=== PATIENT | female | born 1955 | race Caucasian/White ===

== ENCOUNTER 2017-03-20 21:56 | Inpatient (IN) | payer MEDICAID ==
[~2017-03-20] VITALS: Ht 167.6 cm; Wt 99.8 kg
[~2017-03-20 21:56] MED LIST: ATI2I IV; DIGO-119 PO; DOCU-299 PO; LACT10SO11 PO; LANTUS SUBQ; SLIDE SUBQ
[2017-03-20 22:18] VITALS: BP 160/102
--- NOTE | 2017-03-20 22:48 | NUR ---
PT TAKEN TO BED 7
--- NOTE | 2017-03-20 22:50 | NUR ---
PATIENT IS A 62 Y/O FEMALE WHO PRESENTS TO THE ED C/O OF DIZZINESS. PT STATES, "I RAN OUT OF MY CIRRHOSIS MEDICATION AND I FELT DIZZY." PT HAS A H/O DM, CIRRHOSIS, HEPATITIS C. PT DENIES PAIN. PT REPORTS MILB SOB, NOTED CLEAR LUNG SOUNDS BILATERAL. NOTED 99% O2 RA. NOTED JAUNDICE AT BILATERAL EYES. PT DENIES PAIN, N/V/D. PT AAOX4, BUT PATIENT WILL DOZE OFF EVER FEW SECONDS, RR EVEN/UNLABORED. PT REPOSITIONED FOR COMFORT, BED IN LOWEST POSITION. ER MD DR. KATHLEEN NOTIFIED. WILL CONTINUE TO MONITOR.
--- NOTE | 2017-03-20 22:57 | NUR ---
Dr. Ribeiro evaluating patient at bedside.
[2017-03-20 23:33] LABS: HEMOGLOBIN 13.1 g/dL (12.0-16.0); MEAN CORPUSCULAR HEMOGLOBIN 32 pg (27-31); MEAN CORPUSCULAR HGB CONC 34 g/dL (33-37); MEAN CORPUSCULAR VOLUME 94 fL (80-94); PLATELET COUNT (AUTO) 105 K/uL (140-450); RED BLOOD CELL COUNT(AUTO) 4.06 MIL/uL (4.20-5.40); RED CELL DISTRIBUTION WIDTH 12.9 % (11.6-13.7); WHITE BLOOD COUNT (AUTO) 6.6 K/uL (4.8-10.8)
[2017-03-20 23:42] LABS: ANION GAP 8.9 (8-16); CARBON DIOXIDE 27.9 mmol/L (21-32); CREATININE 1.2 mg/dL (0.6-1.3); POTASSIUM 3.8 mmol/L (3.5-5.1)
[2017-03-20 23:44] LABS: EOSINOPHILS % (MANUAL) 2 % (0-4); LYMPHOCYTES % (MANUAL) 14 % (20-46); MONOCYTES % (MANUAL) 8 % (5-12)
[2017-03-20 23:48] LABS: ALBUMIN 3.3 g/dL (3.4-5.0); TOTAL BILIRUBIN 0.9 mg/dL (0.0-1.0)
[2017-03-21 00:18] LABS: APPEARANCE,URINE HAZY (CLEAR); BILIRUBIN,URINE NEGATIVE (NEGATIVE); BLOOD, URINE NEGATIVE (NEGATIVE); COLOR,URINE YELLOW (YELLOW); LEUKOCYTE ESTERASE ,URINE 1+ (NEGATIVE); NITRITE, URINE NEGATIVE (NEGATIVE); UGLUCOSE NEGATIVE (NEGATIVE)
[2017-03-21 00:29] LABS: RBC,URINE 0-5 (RARE) /HPF (0-5)
[2017-03-21] MEDS ORDERED: ONDANSETRON 4 MG/2 ML VIAL IM/IVP PRN (00:55)
[2017-03-21] MEDS ORDERED: HYDROmorphone 1 MG/ML AMP IVP PRN (00:55)
[2017-03-21] MEDS ORDERED: DOCUSATE SODIUM 100 MG GELCAP PO PRN (00:55)
[2017-03-21] MEDS ORDERED: HYDROcodone/APAP 7.5/325 MG 1 TAB PO PRN (00:55)
[2017-03-21] MEDS ORDERED: ACETAMINOPHEN 325 MG TAB PO PRN (00:55)
[2017-03-21] MEDS ORDERED: KETOROLAC 30 MG/ML VIAL IVP PRN (00:55)
--- NOTE | 2017-03-21 01:05 | NUR ---
PT WENT TO [facility] WITH [facility] VIA W/C WITH TOMAS SOLIS. UA SENT TO LAB
--- NOTE | 2017-03-21 01:23 | NUR ---
UNABLE TO GIVE REPORT UNTIL DOCTOR OF CHIROPRACTIC GET TO TELE
[2017-03-21 01:36] LABS: BARBITURATE, URINE NEG. ng/ml (NEG <=200); BENZODIAZEPINE, URINE NEG. ng/mL (NEG <=200); CANNABINOID, URINE NEG. ng/mL (NEG <=50); COCAINE, URINE NEG. ng/mL (NEG <=300); OPIATE, URINE NEG. ng/mL (NEG <=2000); PHENCYCLIDINE SCREEN,URINE NEG. ng/mL (NEG <=25)
--- NOTE | 2017-03-21 01:39 | NUR ---
Patient appears to be resting comfortably in bed. Vital Signs within normal limits. Respirations even and unlabored.
[2017-03-21 01:41] LABS: PROTHROMBIN TIME 11.1 secs (10.8-13.4)
[2017-03-21 01:52] LABS: CHOL/HDL RATIO 1.5 (1-4.5); FREE T4 (FREE THYROXINE) 1.11 ng/dL (0.76-1.46); MAGNESIUM 1.6 mg/dL (1.8-2.4); PHOSPHORUS 3.7 mg/dL (2.5-4.9); THYROID STIMULATING HORMONE 1.27 uIU/mL (0.34-3.74)
--- NOTE | 2017-03-21 02:05 | NUR ---
Patient will be admitted to care of DR STEARNS. Admited to TELE. Will go to room 111A. Belongings list completed. Report to MERRILL.
--- NOTE | 2017-03-21 02:34 | NUR ---
RECEIVED FROM ER PER SKYLER AWAKE BUT WITH CONFUSION. VERBALIZES WELL IN [place]ES. WITH RESTLESSNESS NOTED. PACIFIED THAT SHE IS IN THE HOSPITAL AND SHE GOES BACK TO SLEEP. SKIN INTACT. ON TELEMETRY MONITORING. NSR WITH NO ECTOPY. DX. OF CHANGE OF LOC AND HEPATIC C ENCEPHALOPATHY. PT. PLACED ON FALL RISK AND BED ALARM ON. IVF SITE TO RIGHT HAND#20 INTACT AND PATENT. AFEBRILE. BED ALARM OFFERED TO URINATE RT WAS WANTING TO GO [facility] IN RESTROOM . NO URINE DONE. KEPT COMFORTABLE AND WILL BE MONITORED FREQUENTLY. BILATERAL SEQUENTIALS IN PLACE. ORIENTED TO CALL LIGHT USE , CARE GIVERS AND SURROUNDINGS.
[2017-03-21 02:43] VITALS: BP 156/86
[2017-03-21] MEDS ORDERED: DEXTROSE 50% 50 ML SYR IVP PRN (03:00)
[2017-03-21] MEDS: NACL 0.9% 1,000 ML IV SCH ×3 (03:41→19:03)
[2017-03-21] MEDS ORDERED: cefTRIAXone 1,000 MG VIAL ONE ×2 (03:44)
--- NOTE | 2017-03-21 04:06 | NUR ---
SLEEPING AT THIS TIME. CALL LIGHT WITH IN REACH AT BEDSIDE AND BED ALARM ON.
[2017-03-21] MEDS: BLOOD GLUCOSE MONITORING 1 DEV DEV FS SCH ×4 (06:34→20:31)
--- NOTE | 2017-03-21 06:51 | NUR ---
PT. WOKE UP . STILL WITH CONFUSION. RE-ORIENTED TO CALL LIGHT AND ROM. SLEPT BACK. AFEBRILE. FLACC-0.TELEMETRY MONITORING. BED ALARM ON .
--- NOTE | 2017-03-21 07:30 | NUR ---
ENDORSED TO THE NEXT RN FOR CONTINUITY OF CARE. SLEEPING. TELEMETRY MONITORING.
--- NOTE | 2017-03-21 07:35 | NUR ---
RECEIVED PT REPORT AT BEDSIDE FROM NIGHT NURSE AT BEDSIDE. PT IS DROWSY AND HARD TO AROUSE. PT HAS CLEAR SPEECH AND ORIENTED TO PERSON AND PLACE. PT WAKE UP TO VOICE. PT SHOWS NO S/S OF ACUTE DISTRESS ON RA. NOTED IV ON THE R H WITH IVF'S INFUSING WELL. SKIN IS INTACT. ON TELE MONITORING. SCD'S IN PLACE. FALL RISK PROTOCOL IN PLACE. PT DENIES PAIN. PT WAS EXPLAINED POC FOR TODAY HOWEVER PT NEEDS CONSTANT REINFORCEMENT. THE BED IS IN LOW POSITION WITH BED ALARM ACTIVATED, AND CALL LIGHT WITHIN REACH. WILL CONTINUE TO MONITOR.
[2017-03-21 08:00] VITALS: BP 138/68
--- NOTE | 2017-03-21 08:40 | NUR ---
PT BEING SEEN BY TECH.
[2017-03-21] MEDS: LACTOBACILLUS RHAMNOSUS GG 1 EACH CAP PO SCH (08:54)
[2017-03-21] MEDS: PANTOPRAZOLE 40 MG INJ VIAL IVP SCH (08:54)
[2017-03-21] MEDS: RIFAXIMIN 550 MG TAB PO SCH ×2 (08:55→20:30)
[2017-03-21] MEDS: METOPROLOL 25 MG TAB PO SCH ×2 (08:55→20:30)
[2017-03-21] MEDS: LISINOPRIL 10 MG TAB PO SCH (08:56)
[2017-03-21] MEDS ORDERED: MAG SULF 2000 MG/WATER PREMIX 50 ML IV SCH (09:00)
[2017-03-21] MEDS ORDERED: LACTULOSE 20 GM/30 ML UDC PO SCH ×3 (09:00→17:45)
[2017-03-21] MEDS ORDERED: DIGOXIN 0.25 MG TAB PO SCH (09:00)
--- NOTE | 2017-03-21 09:00 | NUR ---
WHILE ADMINISTERING MEDICATION LACTOBACILLUS PO PT DID NOT WANT TO CONTINUE TAKING THE REST OF THE MEDICATIONS. PT WAS ENCOURAGE TO TAKE HER LACTULOSE 10 GM HOWEVER SHE HAD DIFFICULTY SWALLOWING BC PT C/O TASTE. MAG RIDER IS INFUSING WELL. PT INSISTED ON AMB TO THE RESTROOM. PT NEEDED TWO PHOTOGRAPHIC SPECIALIST TO HELP HER. PT VOIDED YELLOW URINE. PT WAS FOUND SLEEPING ON THE TOILET AND WAS WOKEN UP WITH VOICE. PT WOKE UP AND STATED "I'M DONE". PT WAS ASSISTED BACK INTO BED. ALL NEEDS MET AT THIS TIME. BED IN LOW POSITION WITH CALL LIGHT WITHIN REACH.
--- NOTE | 2017-03-21 09:13 | NUR ---
PATIENT HAS BEEN SCREENED AND CATEGORIZED MODERATE NUTRITION RISK. PATIENT WILL BE SEEN WITHIN 3-5 DAYS OF ADMISSION. 03/23/17-03/25/[address]
[2017-03-21 09:16] LABS: PROTHROMBIN TIME 11.5 secs (10.8-13.4)
--- NOTE | 2017-03-21 09:55 | NUR ---
PT LEFT TO CT EXAM.
--- NOTE | 2017-03-21 10:30 | NUR ---
PT BACK ON UNIT FROM CT.
[2017-03-21 12:00] VITALS: BP 150/91
[2017-03-21] MEDS ORDERED: TRAZ-286 PO (12:21)
[2017-03-21] MEDS ORDERED: LEVO0.029 PO (12:21)
[2017-03-21] MEDS ORDERED: SPIR50TA3 PO (12:21)
[2017-03-21] MEDS ORDERED: GABA300C PO (12:21)
--- NOTE | 2017-03-21 12:30 | NUR ---
ASSISTED PT TO RR. PT VOIDED.
--- NOTE | 2017-03-21 13:47 | NUR ---
ADMINISTERED FLEET ENEMA. ASSISTED PT TO RR.
[2017-03-21] MEDS ORDERED: SODIUM PHOSPHATE 118 ML ENEM RC SCH (14:00)
[2017-03-21] MEDS: MORPHINE SULFATE 2 MG/ML SYR IVP PRN ×2 (15:20→21:50)
--- NOTE | 2017-03-21 15:20 | NUR ---
PT C/O 03/14 HEADACHE ADMINISTERED MORPHINE 2 MG IVP. WILL REASSESS IN 30 MIN.
--- NOTE | 2017-03-21 15:27 | NUR ---
CM NOTE RECEIVED CALL FROM FRAME HAND ROSA WHO SAID THAT REVIEWS SHOULD BE SENT TO [facility] FAX# [phone] PH# [phone] OPTION 3. INITIAL REVIEW FAXED TO [facility] FAX# [phone] PH# [phone] OPTION 3.
--- NOTE | 2017-03-21 15:50 | NUR ---
PT STATES PAIN LEVEL OF 6/10 TOLERABLE AT THIS TIME.
[2017-03-21 16:00] VITALS: BP 142/85
[2017-03-21] MEDS ORDERED: KETOROLAC 15 MG/ML VIAL IVP PRN (17:05)
[2017-03-21] MEDS ORDERED: FURO-570 PO (17:26)
[2017-03-21] MEDS: INSULIN LISPRO SLIDING SCALE 100 UNITS/ML VIAL SUBQ PRN ×2 (17:43→20:34)
--- NOTE | 2017-03-21 17:51 | NUR ---
ADMINISTERED SCHEDULED MEDICATIONS. PT TOLERATED WELL. PT AMB WITH ASSIST TO THE RR.
--- NOTE | 2017-03-21 19:35 | NUR ---
GAVE PT REPORT AT BEDSIDE TO NIGHT NURSE. PT ENDORSED IN STABLE CONDITION.
--- NOTE | 2017-03-21 19:36 | NUR ---
RECEIVED REPORT FROM AM NURSE. PT RESTING IN BED, AOX3, CONFUSED AT TIMES, ABLE TO VERBALIZE NEEDS. SCIENTIFIC INVESTIGATOR IN PLACE. SCDs ENSURED. PT C/O WEAKNESS AND PAIN. SEE PAIN ASSESSMENT. WILL ADMINISTER PAIN MED ORDERED. PT DENIES NAUSEA/VOMITING. PT DENIES CHEST PAIN, SOB OR S/S OF ACUTE DISTRESS. IV ACCESS ASYMPTOMATIC, PATENT AND INTACT. IVF INFUSING WELL. ASSISTED PT TO RESTROOM, PT ABLE TO AMBULATE WITH 1 PERSON MODERATE ASSIST. ASSISTED PT BACK TO BED. DISCUSSED AND REVIEWED PLAN OF CARE WITH PT. PT STATED "OK." WILL CONTINUE WITH CONSTANT REINFORCEMENT. ALL NEEDS MET. SAFETY MEASURES ENSURED. CALL LIGHT WITHIN REACH. WILL CONTINUE TO MONITOR.
[2017-03-21 20:00] VITALS: BP 128/78
--- NOTE | 2017-03-21 20:34 | NUR ---
ADMINISTERED DUE MEDS WITH EDUCATION. PT STATED "OK," TOLERATED MEDS WELL. INSULIN COVERAGE ADMINISTERED WITH EDUCATION AND EVENING SNACK. ALL NEEDS MET. IVPB INFUSING WELL. SAFETY MEASURES ENSURED. CALL LIGHT WITHIN REACH. WILL CONTINUE TO MONITOR.
[2017-03-21] MEDS ORDERED: GABAPENTIN 300 MG CAP PO SCH (21:00)
--- NOTE | 2017-03-21 22:25 | NUR ---
IV ACCESS INFILTRATED, IV REMOVED, CANNULA INTACT. NEW IV ACCESS 22G INSERTED ON RIGHT FOREARM, PT TOLERATED WELL. PT C/O PAIN. SEE PAIN ASSESSMENT. ADMINISTERED MORPHINE IVP PRN ORDERED. ALL NEEDS MET. IVF INFUSING WELL. SAFETY MEASURES ENSURED. CALL LIGHT WITHIN REACH. WILL CONTINUE TO MONITOR.
[2017-03-22] VITALS: BP 123/71
--- NOTE | 2017-03-22 00:01 | NUR ---
PT SLEEPING COMFORTABLY, NO S/S OF ACUTE DISTRESS. ALL NEEDS MET. IVF INFUSING WELL. SAFETY MEASURES ENSURED. CALL LIGHT WITHIN REACH. WILL CONTINUE TO MONITOR.
--- NOTE | 2017-03-22 02:10 | NUR ---
PT SLEEPING COMFORTABLY, NO S/S OF ACUTE DISTRESS. ALL NEEDS MET. IVF INFUSING WELL. SAFETY MEASURES ENSURED. CALL LIGHT WITHIN REACH. WILL CONTINUE TO MONITOR.
[2017-03-22 04:00] VITALS: BP 144/95
--- NOTE | 2017-03-22 04:05 | NUR ---
PT SLEEPING COMFORTABLY, NO S/S OF ACUTE DISTRESS. ALL NEEDS MET. IVF INFUSING WELL. SAFETY MEASURES ENSURED. CALL LIGHT WITHIN REACH. WILL CONTINUE TO MONITOR.
--- NOTE | 2017-03-22 04:15 | NUR ---
HEARD PT FROM THE HALLWAY CRYING UNCONTROLLABLY. PT IS IRRITABLE AND RESTLESS. PT STATING "I WANT TO GO HOME" AND "I DON'T FEEL GOOD." WILL MONITOR PT AND NOTIFY .
[2017-03-22] MEDS: MORPHINE SULFATE 2 MG/ML SYR IVP PRN ×2 (04:26→12:11)
--- NOTE | 2017-03-22 04:26 | NUR ---
DR LANCASTER AT BEDSIDE TO SPEAK WITH PT. PT STILL CRYING UNCONTROLLABLY, RESTLESS AND IRRITABLE. ASKED PT IF SHE IS PAIN, PT STATED "YES," ADMINISTERED MORPHINE IVP PRN WITH EDUCATION PER MD. PT TOLERATED WELL.
[2017-03-22] MEDS ORDERED: diphenhydrAMINE 50 MG/ML VIAL IVP SCH (04:35)
[2017-03-22] MEDS ORDERED: LORazepam 2 MG/ML VIAL IVP PRN (04:35)
--- NOTE | 2017-03-22 04:45 | NUR ---
PT STILL CRYING UNCONTROLLABLY, RESTLESS AND IRRITABLE. ADMINISTERED BENADRYL IVP PRN WITH EDUCATION PER DR LANCASTER. ASSISTED PT TO RESTROOM, PT ABLE TO AMBULATE WITH 2 PERSON ASSIST MODERATE ASSISTANCE. ASSISTED PT BACK TO BED, PT IS NOW SLEEPING. ALL NEEDS MET. BED ALARM AND SAFETY MEASURES ENSURED. CALL LIGHT WITHIN REACH. WILL CONTINUE TO MONITOR.
[2017-03-22] MEDS: LEVOTHYROXINE 0.025 MG TAB PO SCH (06:30)
[2017-03-22] MEDS: BLOOD GLUCOSE MONITORING 1 DEV DEV FS SCH ×4 (06:37→20:46)
--- NOTE | 2017-03-22 06:37 | NUR ---
PT SLEEPING, AROUSABLE BY NAME AND TOUCH BUT DROWSY. ATTEMPTED TO ADMINISTER DUE MED SYNTHROID WITH EDUCATION. PT IS STATING "OK" BUT IS UNABLE TO FOLLOW DIRECTIONS TO DRINK WATER. WILL ENDORSE TO AM. NO INSULIN COVERAGE NEEDED. ALL NEEDS MET. IVF INFUSING WELL. SAFETY MEASURES ENSURED. CALL LIGHT WITHIN REACH. WILL CONTINUE TO MONITOR.
[2017-03-22 07:00] LABS: BASOPHILS # (AUTO) 0.1 K/uL (0.00-0.22); BASOPHILS % (AUTO) 0.7 % (0.0-2.0); EOSINOPHILS # (AUTO) 0.1 K/uL (0-0.4); EOSINOPHILS % (AUTO) 1.1 % (0.0-4.0); HEMATOCRIT 42.1 % (36-48); HEMOGLOBIN 14.5 g/dL (12.0-16.0); LYMPHOCYTES # (AUTO) 0.7 K/uL (2.5-16.5); LYMPHOCYTES % (AUTO) 6.2 % (20.5-51.1); MEAN CORPUSCULAR HEMOGLOBIN 32 pg (27-31); MEAN CORPUSCULAR HGB CONC 34 g/dL (33-37); MEAN CORPUSCULAR VOLUME 92 fL (80-94); MONOCYTES # (AUTO) 0.7 K/uL (0.8-1.0); MONOCYTES % (AUTO) 5.6 % (1.7-9.3); NEUTROPHILS # (AUTO) 10.3 K/uL (1.8-7.7); NEUTROPHILS % (AUTO) 86.4 % (42.2-75.2); PLATELET COUNT (AUTO) 112 K/uL (140-450); RED BLOOD CELL COUNT(AUTO) 4.57 MIL/uL (4.20-5.40); RED CELL DISTRIBUTION WIDTH 13.2 % (11.6-13.7); WHITE BLOOD COUNT (AUTO) 11.9 K/uL (4.8-10.8)
--- NOTE | 2017-03-22 07:14 | NUR ---
ENDORSED PLAN OF CARE TO AM NURSE. CONDITION STABLE.
--- NOTE | 2017-03-22 07:15 | NUR ---
RECEIVED PT REPORT AT BEDSIDE FROM NIGHT NURSE AT BEDSIDE. PT IS SLEEPING AND SHOWS NO S/S OF ACUTE DISTRESS ON ROOM AIR. PT WAKE UP TO VOICE. NOTED IV ON THE R FA WITH IVF'S INFUSING WELL. SKIN IS INTACT. ON TELE MONITORING. SCD'S IN PLACE. FALL RISK PROTOCOL IN PLACE. PT DENIES PAIN. PT WAS EXPLAINED POC FOR TODAY HOWEVER PT NEEDS CONSTANT REINFORCEMENT. THE BED IS IN LOW POSITION WITH BED ALARM ACTIVATED, AND CALL LIGHT WITHIN REACH. WILL CONTINUE TO MONITOR.
[2017-03-22 07:37] LABS: ANION GAP 12.3 (8-16); CARBON DIOXIDE 25.7 mmol/L (21-32); CREATININE 1.1 mg/dL (0.6-1.3)
[2017-03-22 07:57] VITALS: BP 156/83
[2017-03-22 08:20] LABS: T4 (THYROXINE) 6.4 ug/dL (4.5-12.0)
[2017-03-22] MEDS: GABAPENTIN 300 MG CAP PO SCH ×3 (09:00→17:07)
[2017-03-22] MEDS ORDERED: LACTOBACILLUS RHAMNOSUS GG 1 EACH CAP PO SCH (09:00)
--- NOTE | 2017-03-22 09:30 | NUR ---
WHILE TRYING TO ADMINISTER MEDICATIONS PT WANTED TO USE THE RR. ASSISTED PT TO RR AND WAS DIFFICULT TO HAVE HER INITIATE WALKING. PT WAS THEN CRYING WHILE USING THE RR AND STATES "I CAN'T PEE" WHILE SITTING UP PT THE TOILET HAD URINE IN IT. PT WAS TOLD SHE ALREADY URINATED AND CAN GET UP IF SHE IS DONE. PT STOOD UP WHILE HOLDING RAIL AND ASSISTANCE. PT THEN AMB TO BEDSIDE. PT SAT ON BED AND WAS ENCOURAGE TO EAT AND TAKE MEDICATIONS. PT THEN STARTED CRYING AND STATES "SHE CAN'T DO IT.'' PT WAS ENCOURAGED TO TAKE MEDICATIONS TO IMPROVE HER HEALTH HOWEVER ONLY MEDICATION THAT PT WAS ABLE TO TAKE WAS LACTULOSE 30 GM PO. WHILE TAKING MEDICATION PT CONTINUED TO CRY AND REFUSE OTHER MEDICATIONS AND CONTINUED TO STATE " I CAN'T DO IT, IT TASTES NASTY." WILL RETURN MEDICATIONS THAT WERE NOT ADMINISTERED.
[2017-03-22] MEDS: RIFAXIMIN 550 MG TAB PO SCH ×2 (09:43→20:46)
[2017-03-22] MEDS: LACTOBACILLUS RHAMNOSUS GG 1 EACH CAP PO SCH (09:43)
[2017-03-22] MEDS: MULTIVITAMIN/MINERALS 1 TAB PO SCH (09:43)
[2017-03-22] MEDS: METOPROLOL 25 MG TAB PO SCH ×2 (09:43→20:46)
[2017-03-22] MEDS: PANTOPRAZOLE 40 MG INJ VIAL IVP SCH (09:43)
[2017-03-22] MEDS: ECOTRIN 81 MG TABEC PO SCH (09:43)
[2017-03-22] MEDS: FUROSEMIDE 40 MG TAB PO SCH (09:44)
[2017-03-22] MEDS: LACTULOSE 20 GM/30 ML UDC PO SCH ×3 (09:44→17:07)
[2017-03-22] MEDS: ATORVASTATIN 20 MG TAB PO SCH (09:44)
[2017-03-22] MEDS: SPIRONOLACTONE 50 MG TAB PO SCH (09:44)
--- NOTE | 2017-03-22 09:45 | NUR ---
SPOKE WITH RESIDENT DR VILLARREAL AND WAS MADE AWARE PT DID NOT TAKE AM MEDICATIONS. PT IS ABLE TO SWALLOW HOWEVER SHE STATES "I CAN'T TAKE IT, IT'S NASTY." STATED TO RETRY GIVEN MEDICATIONS WHEN FAMILY ARRIVES AT 1230. WILL CALL PHARMACY TO REDISTRIBUTE AM MEDICATIONS THAT WERE NOT ADMINISTERED.
[2017-03-22] MEDS: LISINOPRIL 10 MG TAB PO SCH (09:46)
[2017-03-22] MEDS: NACL 0.9% 1,000 ML IV SCH ×2 (09:46→23:39)
--- NOTE | 2017-03-22 11:15 | NUR ---
PT IS SLEEPING AND SHOWS NO S/S OF ACUTE DISTRESS ON ROOM AIR. WILL CONTINUE TO MONITOR.
[2017-03-22 12:00] VITALS: BP 126/96
[2017-03-22] MEDS ORDERED: VANCOMYCIN 500 MG VIAL PO SCH (12:00)
[2017-03-22] MEDS ORDERED: PHARMACY COMMENTS MC SCH (12:00)
[2017-03-22] MEDS: INSULIN LISPRO SLIDING SCALE 100 UNITS/ML VIAL SUBQ PRN ×3 (12:22→20:49)
--- NOTE | 2017-03-22 12:26 | NUR ---
CM NOTE CONCURRENT REVIEW FAXED TO [facility] FAX# [phone] PH# [phone] OPTION 3.
--- NOTE | 2017-03-22 12:30 | NUR ---
PT FAMILY IS AT BEDSIDE. PT WAS GIVEN AM MEDICATIONS THAT WERE NOT ADMINISTERED THIS AM. PT WAS SAT UP IN A CHAIR WITH THE HELP OF FAMILY AND IS DROWSY. PT HAS DELAYED SPEECH WHEN ASKED QUESTIONS. PT STATED SHE WOULD LIKE TO TAKE MEDICATIONS WHOLE AND NOT CRUSHED. PT WAS GIVEN AM MEDICATIONS AND TOLERATED WELL AND SWALLOWED MEDICATIONS WITH NO COMPLICATIONS. WHEN ASKED WHY SHE DID NOT TAKE MEDICATIONS THIS AM. PT STATED " IT TASTES NASTY." PT WAS ENCOURAGED TO TAKE MEDICATIONS WITHOUT FAMILY HELP BC THEY ARE NOT AVAILABLE TO COME IN ALL THE TIME. PT AGREED SHE WOULD TRY ON HER OWN. PT C/O GENERALIZED PAIN 01/12 AND WAS GIVEN MORPHINE 2 MG IVP. WILL REASSESS IN 30 MIN.
--- NOTE | 2017-03-22 14:30 | NUR ---
PT IS SLEEPING COMFORTABLY AND SHOWS NO S/S OF ACUTE DISTRESS ON ROOM AIR. THE BED IN LOW POSITION WITH CALL LIGHT WITHIN REACH. WILL CONTINUE TO MONITOR.
--- NOTE | 2017-03-22 15:38 | NUR ---
PT STILL ASLEEP AND SHOWS NO S/S OF ACUTE DISTRESS ON ROOM AIR. THE BED IS IN LOW POSITION WITH CALL LIGHT WITHIN REACH.
[2017-03-22 16:00] VITALS: BP 105/71
--- NOTE | 2017-03-22 17:45 | NUR ---
ADMINISTERED SCHEDULED MEDICATIONS. PT FAMILY AT BEDSIDE AND ASSISTED WITH ADMINISTERING MEDICATION. PT FAMILY REQUESTED TO HAVE PT HAVE A SHOWER. DR HERNANDEZ ORDERED OKAY TO TAKE OFF TELE BOX FOR SHOWER. ALSO PT WAS TRANSFERRED TO BED B TO BE CLOSER TO THE RR.
--- NOTE | 2017-03-22 19:15 | NUR ---
GAVE PT REPORT AT BEDSIDE TO NIGHT NURSE. PT ENDORSED IN STABLE CONDITION.
--- NOTE | 2017-03-22 19:16 | NUR ---
RECEIVED REPORT FROM AM NURSE. PT SLEEPING COMFORTABLY IN BED, SLEEP APEA NOTED. PT IS AROUSABLE TO NAME AND TOUCH, DROWSY BUT ABLE TO FOLLOW SIMPLE INSTRUCTIONS, AOX2, CONFUSED AT TIMES, ABLE TO VERBALIZE NEEDS. ATMOSPHERIC PHYSICS PROFESSOR IN PLACE. SCDs ENSURED. PT DENIES CHEST PAIN, SOB OR S/S OF ACUTE DISTRESS. IV ACCESS ASYMPTOMATIC, PATENT AND INTACT. IVF INFUSING WELL. DISCUSSED AND REVIEWED PLAN OF CARE WITH PT. PT STATED "OK." WILL CONTINUE WITH CONSTANT REINFORCEMENT. ALL NEEDS MET. SAFETY MEASURES ENSURED. CALL LIGHT WITHIN REACH. WILL CONTINUE TO MONITOR.
[2017-03-22 20:00] VITALS: BP 110/59
--- NOTE | 2017-03-22 20:49 | NUR ---
PT SLEEPING COMFORTABLY, AROUSABLE TO NAME AND TOUCH, DROWSY BUT ABLE TO FOLLOW SIMPLE INSTRUCTIONS. ADMINISTERED DUE MEDS WITH EDUCATION. PT STATED "OK," PT ABLE TO SWALLOW MEDICATIONS WELL. INSULIN COVERAGE ADMINISTERED WITH EVENING SNACK. ASSISTED PT WITH DAILY CARE AND CHANGED BED LINENS WITH DEPUTY SHERIFF CHIEF. ALL NEEDS MET. IVPB INFUSING WELL. SAFETY MEASURES ENSURED. CALL LIGHT WITHIN REACH. WILL CONTINUE TO MONITOR.
--- NOTE | 2017-03-22 21:40 | NUR ---
PT SLEEPING COMFORTABLY, AROUSABLE TO NAME AND TOUCH, DROWSY BUT ABLE TO FOLLOW SIMPLE INSTRUCTIONS. TEMP 100.3, COOLING MEASURES ENSURED, ADMINISTERED TYLENOL PO PRN ORDERED. PT STATED "OK," PT ABLE TO SWALLOW MEDICATIONS WELL. ALL NEEDS MET. SAFETY MEASURES ENSURED. CALL LIGHT WITHIN REACH. WILL CONTINUE TO MONITOR.
[2017-03-23] VITALS: BP 108/54
--- NOTE | 2017-03-23 00:10 | NUR ---
PT SLEEPING COMFORTABLY, NO S/S OF ACUTE DISTRESS. ALL NEEDS MET. IVF INFUSING WELL. SAFETY MEASURES ENSURED. CALL LIGHT WITHIN REACH. WILL CONTINUE TO MONITOR.
--- NOTE | 2017-03-23 03:50 | NUR ---
PT SLEEPING, PT WAS WOKEN UP BY NAME AND TOUCH. PT IS NOW MORE AWAKE AND ALERT. PT REORIENTED. PT IS NOW AOX4, ABLE TO VERBALIZE NEEDS. PT DENIES CHEST PAIN, SOB OR S/S OF ACUTE DISTRESS, PT STATED "I FEEL A LOT BETTER THAN YESTERDAY." PT C/O BEING HUNGRY, WILL GIVE SANDWICH. ASSISTED PT TO RESTROOM, PT ABLE TO AMBULATE WITH 1 PERSON MINIMAL ASSIST. ALL NEEDS MET. IVF INFUSING WELL. SAFETY MEASURES ENSURED. CALL LIGHT WITHIN REACH. WILL CONTINUE TO MONITOR.
[2017-03-23 04:00] VITALS: BP 116/70
[2017-03-23] MEDS: LEVOTHYROXINE 0.025 MG TAB PO SCH (05:48)
--- NOTE | 2017-03-23 05:50 | NUR ---
DR GRANADOS AT BEDSIDE TO SEE PT. PT SLEEPING, AROUSABLE TO NAME AND TOUCH. PT STATED "I FEEL BETTER." ADMINISTERED DUE MED WITH EDUCATION. PT STATED "OK." PT ABLE TO SWALLOW MEDICATION WELL. ALL NEEDS MET. IVF INFUSING WELL. SAFETY MEASURES ENSURED. CALL LIGHT WITHIN REACH. WILL CONTINUE TO MONITOR.
[2017-03-23] MEDS: BLOOD GLUCOSE MONITORING 1 DEV DEV FS SCH ×4 (06:28→20:08)
[2017-03-23] MEDS: INSULIN LISPRO SLIDING SCALE 100 UNITS/ML VIAL SUBQ PRN ×4 (06:30→20:17)
--- NOTE | 2017-03-23 06:30 | NUR ---
ADMINISTERED INSULIN COVERAGE WITH EDUCATION. PT TOLERATED WELL.
[2017-03-23 06:48] LABS: BASOPHILS # (AUTO) 0.3 K/uL (0.00-0.22); BASOPHILS % (AUTO) 3.5 % (0.0-2.0); EOSINOPHILS # (AUTO) 0.2 K/uL (0-0.4); HEMATOCRIT 39.5 % (36-48); HEMOGLOBIN 13.4 g/dL (12.0-16.0); LYMPHOCYTES # (AUTO) 1.4 K/uL (2.5-16.5); LYMPHOCYTES % (AUTO) 16.2 % (20.5-51.1); MEAN CORPUSCULAR HEMOGLOBIN 32 pg (27-31); MEAN CORPUSCULAR HGB CONC 34 g/dL (33-37); MEAN CORPUSCULAR VOLUME 93 fL (80-94); MONOCYTES # (AUTO) 0.8 K/uL (0.8-1.0); MONOCYTES % (AUTO) 9.8 % (1.7-9.3); NEUTROPHILS % (AUTO) 68.5 % (42.2-75.2); PLATELET COUNT (AUTO) 111 K/uL (140-450); RED BLOOD CELL COUNT(AUTO) 4.23 MIL/uL (4.20-5.40); RED CELL DISTRIBUTION WIDTH 12.9 % (11.6-13.7); WHITE BLOOD COUNT (AUTO) 8.7 K/uL (4.8-10.8)
[2017-03-23 07:15] LABS: ANION GAP 9.8 (8-16); CARBON DIOXIDE 25.9 mmol/L (21-32); POTASSIUM 3.7 mmol/L (3.5-5.1)
--- NOTE | 2017-03-23 07:22 | NUR ---
ENDORSED PLAN OF CARE TO AM NURSE. CONDITION STABLE.
--- NOTE | 2017-03-23 07:23 | NUR ---
RECEIVED PT FROM BERNARD MARIN AT BEDSIDE. PT IS A&OX3 AND VERY FORGETFUL. PT HAS IV ON R F/A 22 G RUNNING NS@70. PT HAS NO COMPLAINTS, STATED SHE IS FEELING BETTER. BED ALARM ON. SCDS ON. CALL LIGHT WITHIN REACH. WILL CONTINUE TO MONITOR.
[2017-03-23 07:31] LABS: MAGNESIUM 1.7 mg/dL (1.8-2.4); PHOSPHORUS 3.1 mg/dL (2.5-4.9)
[2017-03-23 08:00] VITALS: BP 135/72
[2017-03-23] MEDS: PANTOPRAZOLE 40 MG INJ VIAL IVP SCH (08:48)
[2017-03-23] MEDS: LACTOBACILLUS RHAMNOSUS GG 1 EACH CAP PO SCH (08:48)
[2017-03-23] MEDS: GABAPENTIN 300 MG CAP PO SCH ×3 (08:48→16:51)
[2017-03-23] MEDS: ATORVASTATIN 20 MG TAB PO SCH (08:48)
[2017-03-23] MEDS: LACTULOSE 20 GM/30 ML UDC PO SCH ×3 (08:48→16:52)
[2017-03-23] MEDS: FUROSEMIDE 40 MG TAB PO SCH (08:49)
[2017-03-23] MEDS: METOPROLOL 25 MG TAB PO SCH ×2 (08:49→20:03)
[2017-03-23] MEDS: MULTIVITAMIN/MINERALS 1 TAB PO SCH (08:49)
[2017-03-23] MEDS: LISINOPRIL 10 MG TAB PO SCH (08:49)
--- NOTE | 2017-03-23 08:49 | NUR ---
ADMINISTERED MORNING MEDS. PT TOLERATED WELL. CALL LIGHT WITHIN REACH. WILL CONTINUE TO MONITOR.
[2017-03-23] MEDS: SPIRONOLACTONE 50 MG TAB PO SCH (08:50)
[2017-03-23] MEDS: ECOTRIN 81 MG TABEC PO SCH (08:50)
[2017-03-23] MEDS: RIFAXIMIN 550 MG TAB PO SCH ×2 (08:50→20:08)
[2017-03-23] MEDS ORDERED: MAGNESIUM OXIDE 400 MG TAB PO SCH (09:00)
--- NOTE | 2017-03-23 10:08 | NUR ---
DAUGHTER AT BEDSIDE. DR. GRANADOS TALKED TO DAUGHTER AND PT IN ROOM. PT IN STABLE CONDITION. CALL LIGHT WITHIN REACH. WILL CONTINUE TO MONITOR.
--- NOTE | 2017-03-23 10:33 | NUR ---
COVERED PT'S IV SITE. PROVIDED WITH TOWELS AND TOILETRIES. DAUGHTER IS ASSISTING PT WITH SHOWER. PT IN STABLE CONDITION.
[2017-03-23 11:37] VITALS: BP 93/61
--- NOTE | 2017-03-23 11:38 | NUR ---
CM NOTE CONCURRENT REVIEW FAXED TO [facility] FAX# [phone] PH# [phone] OPTION 3.
--- NOTE | 2017-03-23 11:57 | NUR ---
PT IS TALKING ON THE PHONE. DAUGHTER AT BEDSIDE. NO DISTRESS NOTED IN PT. CALL LIGHT WITHIN REACH. WILL CONTINUE TO MONITOR.
--- NOTE | 2017-03-23 13:00 | NUR ---
PT SAT AT EDGE OF BED TO EAT. TOLERATED WELL. CALL LIGHT WITHIN REACH. WILL CONTINUE TO MONITOR.
[2017-03-23] MEDS: NACL 0.9% 1,000 ML IV SCH (15:20)
--- NOTE | 2017-03-23 15:30 | NUR ---
PT HAD BM. TOLERATED WELL. HELPED BACK TO BED. CALL LIGHT WITHIN REACH. WILL CONTINUE TO MONITOR.
[2017-03-23 16:00] VITALS: BP 126/68
--- NOTE | 2017-03-23 17:00 | NUR ---
PT REQUESTED TO HAVE A SANDWICH SHE IS REALLY HUNGRY. SANDWICH PROVIDED. PT IN STABLE CONDITION. CALL LIGHT WITHIN REACH. WILL CONTINUE TO MONITOR.
--- NOTE | 2017-03-23 18:51 | NUR ---
FAMILY AT BEDSIDE. PT IS RESTING COMFORTABLY IN BED. CALL LIGHT WITHIN REACH. WILL CONTINUE TO MONITOR.
--- NOTE | 2017-03-23 19:18 | NUR ---
ENDORSED CARE OF PT TO CHARLES MARIN AT BEDSIDE. PT IN STABLE CONDITION.
--- NOTE | 2017-03-23 19:20 | NUR ---
RECEIVED PATIENT REPORT AT BEDSIDE FROM MORNING NURSE. PATIENT AWAKE, ALERT AND ORIENTED. NO SIGNS AND SYMPTOMS OF DISTRESS NOTED. NO COMPLAINTS OF PAIN AT THIS TIME. IV SITE NOTED ON RIGHT FOREARM. IVF INFUSING WELL. BED IN LOWEST POSITION, SIDE RAILS UP AND CALL LIGHT WITHIN REACH. WILL CONTINUE TO MONITOR.
[2017-03-23 20:00] VITALS: BP 99/54
--- NOTE | 2017-03-23 23:49 | NUR ---
CHECKED ON PATIENT. PATIENT IS ASLEEP, NO SIGNS AND SYMPTOMS OF DISTRESS NOTED. BREATHING EVEN AND UNLABORED. WILL CONTINUE TO MONITOR.
[2017-03-24] VITALS: BP 103/44
--- NOTE | 2017-03-24 02:08 | NUR ---
CHECKED ON PATIENT, PATIENT IS ASLEEP. NO SIGNS AND SYMPTOMS OF DISTRESS NOTED. BED IN LOWEST POSITION, SIDE RAILS UP AND CALL LIGHT WITHIN REACH. WILL CONTINUE TO MONITOR.
[2017-03-24 04:00] VITALS: BP 117/72
[2017-03-24] MEDS: NACL 0.9% 1,000 ML IV SCH (04:15)
--- NOTE | 2017-03-24 04:17 | NUR ---
CHECKED ON PATIENT. PATIENT IS ASLEEP. NO SIGNS AND SYMPTOMS OF DISTRESS NOTED. BED IN LOWEST POSITION, SIDE RAILS UP AND CALL LIGHT WITHIN REACH.
[2017-03-24 05:34] LABS: BASOPHILS # (AUTO) 0.3 K/uL (0.00-0.22); BASOPHILS % (AUTO) 2.9 % (0.0-2.0); EOSINOPHILS # (AUTO) 0.3 K/uL (0-0.4); HEMATOCRIT 38.8 % (36-48); HEMOGLOBIN 13.4 g/dL (12.0-16.0); LYMPHOCYTES # (AUTO) 1.1 K/uL (2.5-16.5); LYMPHOCYTES % (AUTO) 12.6 % (20.5-51.1); MEAN CORPUSCULAR HEMOGLOBIN 32 pg (27-31); MEAN CORPUSCULAR HGB CONC 35 g/dL (33-37); MEAN CORPUSCULAR VOLUME 94 fL (80-94); MONOCYTES % (AUTO) 11.1 % (1.7-9.3); NEUTROPHILS # (AUTO) 6.2 K/uL (1.8-7.7); NEUTROPHILS % (AUTO) 70.4 % (42.2-75.2); PLATELET COUNT (AUTO) 107 K/uL (140-450); RED BLOOD CELL COUNT(AUTO) 4.15 MIL/uL (4.20-5.40); RED CELL DISTRIBUTION WIDTH 12.8 % (11.6-13.7); WHITE BLOOD COUNT (AUTO) 8.9 K/uL (4.8-10.8)
[2017-03-24] MEDS: LEVOTHYROXINE 0.025 MG TAB PO SCH (05:46)
[2017-03-24] MEDS: INSULIN LISPRO SLIDING SCALE 100 UNITS/ML VIAL SUBQ PRN (06:10)
[2017-03-24] MEDS: BLOOD GLUCOSE MONITORING 1 DEV DEV FS SCH (06:11)
[2017-03-24 06:25] LABS: ANION GAP 9.9 (8-16); POTASSIUM 3.9 mmol/L (3.5-5.1)
[2017-03-24 06:31] LABS: MAGNESIUM 1.7 mg/dL (1.8-2.4); PHOSPHORUS 3.1 mg/dL (2.5-4.9)
--- NOTE | 2017-03-24 07:07 | NUR ---
PATIENT REPORT GIVEN TO MORNING NURSE AT BEDSIDE. PATIENT IS IN STABLE CONDITION
--- NOTE | 2017-03-24 07:08 | NUR ---
RECEIVED BEDSIDE REPORT FROM NIGHT NURSE, PT SLEEPING, EASY TO AROUSE, NO DISTRESS NOTED, ALERT AND ORIENTED, SKIN INTACT, IV TO THE R FA 22G RUNNING NS @ 70ML/HR, INFUSING WELL, CALL LIGHT WITHIN REACH, WILL CONTINUE TO MONITOR.
[2017-03-24] MEDS ORDERED: GABA-638 PO (07:29)
[2017-03-24] MEDS ORDERED: ATOR20TA40 PO (07:29)
[2017-03-24] MEDS ORDERED: ASPI-1173 PO (07:29)
[2017-03-24] MEDS ORDERED: LACT10SO1 PO (07:46)
[2017-03-24 08:00] VITALS: BP 134/78
[2017-03-24] MEDS ORDERED: MAGNESIUM OXIDE 400 MG TAB PO SCH (08:00)
[2017-03-24] MEDS ORDERED: metFORMIN 500 MG TAB PO SCH (08:00)
[2017-03-24] MEDS: MULTIVITAMIN/MINERALS 1 TAB PO SCH (08:23)
[2017-03-24] MEDS: ATORVASTATIN 20 MG TAB PO SCH (08:23)
[2017-03-24] MEDS: GABAPENTIN 300 MG CAP PO SCH (08:24)
[2017-03-24] MEDS: LACTOBACILLUS RHAMNOSUS GG 1 EACH CAP PO SCH (08:24)
[2017-03-24] MEDS: FUROSEMIDE 40 MG TAB PO SCH (08:24)
[2017-03-24] MEDS: SPIRONOLACTONE 50 MG TAB PO SCH (08:25)
[2017-03-24] MEDS: ECOTRIN 81 MG TABEC PO SCH (08:25)
[2017-03-24] MEDS: RIFAXIMIN 550 MG TAB PO SCH (08:25)
[2017-03-24] MEDS: LISINOPRIL 10 MG TAB PO SCH (08:26)
[2017-03-24] MEDS: METOPROLOL 25 MG TAB PO SCH (08:26)
[2017-03-24] MEDS: PANTOPRAZOLE 40 MG INJ VIAL IVP SCH (08:27)
[2017-03-24] MEDS: LACTULOSE 20 GM/30 ML UDC PO SCH (08:29)
--- NOTE | 2017-03-24 09:00 | NUR ---
PT IS RESTING COMFORTABLY IN BED. NO DISTRESS NOTED. CALL LIGHT WITHIN REACH. WILL CONTINUE TO MONITOR.
--- NOTE | 2017-03-24 09:06 | NUR ---
CM NOTE CONCURRENT REVIEW FAXED TO [facility] FAX# [phone] PH# [phone] OPTION 3.
[2017-03-24] MEDS ORDERED: RIFA550T PO (09:35)
[2017-03-24 10:02] VITALS: BP 134/78
--- NOTE | 2017-03-24 10:50 | NUR ---
WENT OVER DC PAPERWORK WITH PT AND GAVE PRESCRIPTION TO PT. PT VERBALIZED UNDERSTANDING AND SIGNED APPROPRIATE PAPERWORK. REMOVED IV CANNULA INTACT. REMOVED ALL ID BANDS. CALL LIGHT WITHIN REACH. PT WILL GET READY AND CALL.
--- NOTE | 2017-03-24 11:05 | NUR ---
PT REFUSED WHEELCHAIR. WALKED PT OUT OF HOSPITAL. ACCOMPANIED BY NIECE. PT IN STABLE CONDITION.
== END 2017-03-24 11:05 | disposition home or self-care (01) | DRG 279 ==
LOC: MED 21:56 → MTU 03-21 00:56
PROVIDERS: ADMIT Family Medicine; ATTEND Family Medicine
DX: K72.90 Hepatic failure, unspecified without coma (principal); N17.0 Acute kidney failure with tubular necrosis; B19.21 Unspecified viral hepatitis C with hepatic coma; D68.59 Other primary thrombophilia; I11.0 Hypertensive heart disease with heart failure; I50.9 Heart failure, unspecified; E11.51 Type 2 diabetes mellitus with diabetic peripheral angiopathy without gangrene; E11.65 Type 2 diabetes mellitus with hyperglycemia; K74.60 Unspecified cirrhosis of liver; E44.1 Mild protein-calorie malnutrition; E83.42 Hypomagnesemia; N39.0 Urinary tract infection, site not specified; D69.59 Other secondary thrombocytopenia; E66.9 Obesity, unspecified; Z68.35 Body mass index [BMI] 35.0-35.9, adult; F15.10 Other stimulant abuse, uncomplicated; M19.90 Unspecified osteoarthritis, unspecified site; Z91.19 Patient's noncompliance with other medical treatment and regimen; Z79.899 Other long term (current) drug therapy; Z79.82 Long term (current) use of aspirin; Z86.718 Personal history of other venous thrombosis and embolism; Z79.4 Long term (current) use of insulin; E87.8 Other disorders of electrolyte and fluid balance, not elsewhere classified
CPT/HCPCS: 36415; 70450; 71010; 76705; 80048; 80053; 80162; 80305; 81001; 82140; 82150; 82948; 83036; 83690; 83735; 83880; 84100; 84436; 84439; 84443; 84479; 85025; 85610; 85730; 87081; 87086; 93005; 93925; 93970; 99285; C9113; G0482; J0696; J1200; J1815; J1885; J2060; J2270; J3370; J3475; J7030; J7060; Q0092